=== PATIENT | female | born 1960 | race Caucasian/White ===

== ENCOUNTER 2016-07-29 09:39 | Emergency (ER) | payer MEDICAID, OTHER ==
[~2016-07-29] VITALS: Ht 157.5 cm; Wt 73.0 kg
[2016-07-29 10:50] VITALS: BP 123/84
[2016-07-29 11:22] LABS: CLARITY URINE CLEAR (CLEAR); COLOR URINE YELLOW (YELLOW); GLUCOSE URINE NEGATIVE (NEGATIVE); KETONES URINE NEGATIVE (NEGATIVE); LEUKOCYTE ESTERASE URINE NEGATIVE (NEGATIVE); NITRITE URINE NEGATIVE (NEGATIVE); OCCULT BLOOD URINE NEGATIVE (NEGATIVE); PH URINE 7.5 (4.5-8.0); PROTEIN URINE 1+ (NEGATIVE); UROBILINOGEN URINE 0.2 E.U./dL (0.2-1.0)
[2016-07-29 11:40] LABS: SQUAMOUS EPITHELIAL CELL URINE 1+ /lpf (RARE/1+)
[2016-07-29 11:41] LABS: BACTERIA URINE 1+; RBC URINE 0-2 /hpf (0-2); WBC URINE 0-2 /hpf (0-2)
== END 2016-07-30 04:38 | disposition home or self-care (01) ==
LOC: ER 13:15
DX: M54.5 Low back pain (principal); E78.00 Pure hypercholesterolemia, unspecified; E11.9 Type 2 diabetes mellitus without complications; Z88.6 Allergy status to analgesic agent
CPT/HCPCS: 81001; 99283